=== PATIENT | female | born 1970 | race Caucasian/White ===

== ENCOUNTER 2021-04-06 11:15 | Day surgery (SDC) | payer OTHER ==
[2021-04-04 16:33] VITALS: BMI 33.7
[2021-04-06] MEDS ORDERED: PROPOFOL 20 ML ONE (12:17)
[2021-04-06 13:32] VITALS: TEMP 98.2
[2021-04-06 13:35] VITALS: BP 141/84; PULSE 78
== END 2021-04-06 13:30 | disposition home or self-care (01) ==
LOC: FASU-ENDO 11:15
PROVIDERS: ATTEND Internal Medicine Gastroenterology
PROC: 0DJD8ZZ Inspection of Lower Intestinal Tract, Via Natural or Artificial Opening Endoscopic (ICD-10-PCS; principal; 2021-04-06 12:37)
DX: D64.9 Anemia, unspecified (principal); K64.1 Second degree hemorrhoids
CPT/HCPCS: 84703

== ENCOUNTER 2021-04-27 10:28 | Day surgery (SDC) | payer OTHER ==
[2021-04-21 10:29] VITALS: BMI 33.7
[2021-04-27 12:00] VITALS: PULSE 90; TEMP 97.8
[2021-04-27 12:02] VITALS: BP 114/71
== END 2021-04-27 12:04 | disposition home or self-care (01) ==
LOC: FASU-ENDO 10:28
PROVIDERS: ATTEND Internal Medicine Gastroenterology
PROC: 0DB68ZX Excision of Stomach, Via Natural or Artificial Opening Endoscopic, Diagnostic (ICD-10-PCS; 2021-04-27)
PROC: 0DB48ZX Excision of Esophagogastric Junction, Via Natural or Artificial Opening Endoscopic, Diagnostic (ICD-10-PCS; 2021-04-27)
PROC: 0DB98ZX Excision of Duodenum, Via Natural or Artificial Opening Endoscopic, Diagnostic (ICD-10-PCS; principal; 2021-04-27 11:15)
DX: D64.9 Anemia, unspecified (principal); K29.50 Unspecified chronic gastritis without bleeding; K21.9 Gastro-esophageal reflux disease without esophagitis; K20.90 Esophagitis, unspecified without bleeding
CPT/HCPCS: 84703; 88305-TC; 88342-TC

== ENCOUNTER 2021-08-18 08:03 | Day surgery (SDC) | payer OTHER ==
[2021-08-18] MEDS ORDERED: IRON SUCROSE INJECTION 300 MG in SODIUM CHLORIDE 250 ML IVPB ONE (12:30)
[2021-08-18 16:59] VITALS: PULSE 100; TEMP 98.6
[2021-08-18 17:08] VITALS: BP 124/67
== END 2021-08-18 16:00 | disposition home or self-care (01) ==
LOC: JONCNONCHE 08:03
PROVIDERS: ATTEND Internal Medicine Hematology & Oncology
PROC: 3E033GC Introduction of Other Therapeutic Substance into Peripheral Vein, Percutaneous Approach (ICD-10-PCS; principal; 2021-08-18)
DX: D50.9 Iron deficiency anemia, unspecified (principal)
CPT/HCPCS: 96365; J1756

== ENCOUNTER 2021-08-24 06:59 | Day surgery (SDC) | payer OTHER ==
[2021-08-24] MEDS ORDERED: IRON SUCROSE INJECTION 300 MG in SODIUM CHLORIDE 250 ML IVPB ONE (10:00)
[2021-08-24 14:55] LABS: BASO % 1.2 % (0-2.0); EOS % 1.2 % (0-4.5); HEMATOCRIT 24.2 % (32.4-45.2); HEMOGLOBIN 7.2 GM/dL (10.7-15.3); LYMPH % 24.2 % (8-40); MCHC 29.8 g/dl (32.0-36.0); MEAN CELL VOLUME 60.7 fl (80-96); MEAN PLT VOLUME 8.3 fl (7.5-11.1); MONO % 9.1 % (3.8-10.2); NEUT % 64.3 % (42.8-82.8); PLATELET COUNT 370 10^3/uL (134-434); RBC 3.98 M/mm3 (3.60-5.2); RDW 18.6 % (11.6-15.6); WHITE BLOOD COUNT 6.6 K/mm3 (4.0-10.0)
[2021-08-24 14:58] LABS: MCH 18.1 pg (25.7-33.7)
[2021-08-24 15:28] LABS: ANISOCYTOSIS 3+; MACROCYTOSIS 1+; TEAR DROP CELLS 1+
[2021-08-24 16:21] VITALS: TEMP 97.6
[2021-08-24 16:28] VITALS: BP 129/71; PULSE 83
== END 2021-08-24 16:15 | disposition home or self-care (01) ==
LOC: JONCNONCHE 06:59
PROVIDERS: ATTEND Internal Medicine Hematology & Oncology
PROC: 3E033GC Introduction of Other Therapeutic Substance into Peripheral Vein, Percutaneous Approach (ICD-10-PCS; principal; 2021-08-24)
DX: D50.9 Iron deficiency anemia, unspecified (principal)
CPT/HCPCS: 36415; 85025; 96365; J1756

== ENCOUNTER 2021-08-31 06:41 | Day surgery (SDC) | payer OTHER ==
[2021-08-31] MEDS ORDERED: IRON SUCROSE INJECTION 300 MG in SODIUM CHLORIDE 250 ML IVPB ONE (10:00)
[2021-08-31 14:21] LABS: BASO % 0.8 % (0-2.0); EOS % 2.2 % (0-4.5); HEMATOCRIT 29.1 % (32.4-45.2); HEMOGLOBIN 8.9 GM/dL (10.7-15.3); MCH 19.8 pg (25.7-33.7); MCHC 30.7 g/dl (32.0-36.0); MEAN CELL VOLUME 64.6 fl (80-96); MEAN PLT VOLUME 7.9 fl (7.5-11.1); PLATELET COUNT 437 10^3/uL (134-434); RBC 4.51 M/mm3 (3.60-5.2); RDW 26.8 % (11.6-15.6); WHITE BLOOD COUNT 5.4 K/mm3 (4.0-10.0)
[2021-08-31 14:50] LABS: ANISOCYTOSIS 2+; MACROCYTOSIS 0; OVALOCYTE 2+
[2021-08-31 17:39] VITALS: BP 138/71; PULSE 88; TEMP 98.2
== END 2021-08-31 16:20 | disposition home or self-care (01) ==
LOC: JONCNONCHE 06:41
PROVIDERS: ATTEND Internal Medicine Hematology & Oncology
PROC: 3E033GC Introduction of Other Therapeutic Substance into Peripheral Vein, Percutaneous Approach (ICD-10-PCS; principal; 2021-08-31)
DX: D50.9 Iron deficiency anemia, unspecified (principal)
CPT/HCPCS: 36415; 85025; 96365; J1756

== ENCOUNTER 2021-09-07 07:06 | Day surgery (SDC) | payer OTHER ==
[2021-09-07 14:06] LABS: BASO % 0.8 % (0-2.0); EOS % 2.1 % (0-4.5); HEMATOCRIT 33.3 % (32.4-45.2); HEMOGLOBIN 10.5 GM/dL (10.7-15.3); LYMPH % 36.9 % (8-40); MCH 21.1 pg (25.7-33.7); MCHC 31.5 g/dl (32.0-36.0); MEAN CELL VOLUME 66.8 fl (80-96); MEAN PLT VOLUME 8.4 fl (7.5-11.1); NEUT % 49.2 % (42.8-82.8); PLATELET COUNT 377 10^3/uL (134-434); RBC 4.98 M/mm3 (3.60-5.2); RDW 31.7 % (11.6-15.6); WHITE BLOOD COUNT 6.1 K/mm3 (4.0-10.0)
[2021-09-07] MEDS ORDERED: IRON SUCROSE INJECTION 300 MG in SODIUM CHLORIDE 250 ML IVPB ONE (14:15)
[2021-09-07 14:37] LABS: ANISOCYTOSIS 2+; MACROCYTOSIS 0; OVALOCYTE 1+
[2021-09-07 18:31] VITALS: TEMP 98.3
[2021-09-07 18:37] VITALS: BP 138/75; PULSE 75
== END 2021-09-07 16:20 | disposition home or self-care (01) ==
LOC: JONCNONCHE 07:06
PROVIDERS: ATTEND Internal Medicine Hematology & Oncology
PROC: 3E033GC Introduction of Other Therapeutic Substance into Peripheral Vein, Percutaneous Approach (ICD-10-PCS; principal; 2021-09-07)
DX: D50.9 Iron deficiency anemia, unspecified (principal)
CPT/HCPCS: 36415; 85025; 96365; J1756

== ENCOUNTER 2021-09-14 07:28 | Day surgery (SDC) | payer OTHER ==
[2021-09-14] MEDS ORDERED: IRON SUCROSE INJECTION 300 MG in SODIUM CHLORIDE 250 ML IVPB ONE (10:00)
[2021-09-14 17:55] VITALS: TEMP 98.2
[2021-09-14 17:58] VITALS: BP 132/92; PULSE 87
== END 2021-09-14 15:45 | disposition home or self-care (01) ==
LOC: JONCNONCHE 07:28
PROVIDERS: ATTEND Internal Medicine Hematology & Oncology
PROC: 3E033GC Introduction of Other Therapeutic Substance into Peripheral Vein, Percutaneous Approach (ICD-10-PCS; principal; 2021-09-14)
DX: D50.9 Iron deficiency anemia, unspecified (principal)
CPT/HCPCS: 96365; J1756

== ENCOUNTER 2021-11-23 07:13 | Day surgery (SDC) | payer OTHER ==
[2021-11-23] MEDS ORDERED: IRON SUCROSE INJECTION 300 MG in SODIUM CHLORIDE 250 ML IVPB ONE (14:30)
[2021-11-23 17:21] VITALS: BP 137/79; PULSE 88; TEMP 97.8
== END 2021-11-23 16:45 | disposition home or self-care (01) ==
LOC: JONCNONCHE 07:13
PROVIDERS: ATTEND Internal Medicine Hematology & Oncology
PROC: 3E033GC Introduction of Other Therapeutic Substance into Peripheral Vein, Percutaneous Approach (ICD-10-PCS; principal; 2021-11-23)
DX: D50.9 Iron deficiency anemia, unspecified (principal)
CPT/HCPCS: 96365; J1756

== ENCOUNTER 2021-11-30 06:21 | Day surgery (SDC) | payer OTHER ==
[2021-11-30] MEDS ORDERED: SODIUM CHLORIDE IVPB ONE (10:00)
[2021-11-30] MEDS ORDERED: IRON SUCROSE IVPB ONE (10:00)
[2021-11-30] MEDS ORDERED: IRON SUCROSE INJECTION 300 MG in SODIUM CHLORIDE 250 ML IVPB ONE (15:00)
[2021-11-30 18:03] VITALS: TEMP 98.9
[2021-11-30 18:09] VITALS: BP 124/79; PULSE 70
== END 2021-11-30 16:40 | disposition home or self-care (01) ==
LOC: JONCNONCHE 06:21
PROVIDERS: ATTEND Internal Medicine Hematology & Oncology
PROC: 3E033GC Introduction of Other Therapeutic Substance into Peripheral Vein, Percutaneous Approach (ICD-10-PCS; principal; 2021-11-30)
DX: D50.9 Iron deficiency anemia, unspecified (principal)
CPT/HCPCS: 96365; J1756

== ENCOUNTER 2021-12-07 06:26 | Day surgery (SDC) | payer OTHER ==
[2021-12-07] MEDS ORDERED: IRON SUCROSE INJECTION 300 MG in SODIUM CHLORIDE 250 ML IVPB ONE (10:00)
[2021-12-07 16:35] VITALS: BP 113/73; PULSE 74
[2021-12-07 16:38] VITALS: TEMP 98.7
== END 2021-12-07 16:45 | disposition home or self-care (01) ==
LOC: JONCNONCHE 06:26
PROVIDERS: ATTEND Internal Medicine Hematology & Oncology
PROC: 3E033GC Introduction of Other Therapeutic Substance into Peripheral Vein, Percutaneous Approach (ICD-10-PCS; principal; 2021-12-07)
DX: E61.1 Iron deficiency (principal)
CPT/HCPCS: 96365; J1756

== ENCOUNTER 2021-12-14 06:33 | Day surgery (SDC) | payer OTHER ==
[2021-12-14] MEDS ORDERED: IRON SUCROSE INJECTION 300 MG in SODIUM CHLORIDE 250 ML IVPB ONE (15:30)
[2021-12-14 17:10] VITALS: TEMP 98.6
[2021-12-14 18:03] VITALS: BP 140/78; PULSE 69
== END 2021-12-14 17:30 | disposition home or self-care (01) ==
LOC: JONCNONCHE 06:33
PROVIDERS: ATTEND Internal Medicine Hematology & Oncology
PROC: 3E033GC Introduction of Other Therapeutic Substance into Peripheral Vein, Percutaneous Approach (ICD-10-PCS; principal; 2021-12-14)
DX: D50.9 Iron deficiency anemia, unspecified (principal)
CPT/HCPCS: 96365; J1756

== ENCOUNTER 2025-01-05 06:28 | Emergency (ER) | payer OTHER ==
[2025-01-05 06:38] VITALS: TEMP 98
[2025-01-05 08:04] LABS: ABSOLUTE IMMATURE GRANULOCYTES 0.04 x10^3/uL (0.0-0.031); BASOPHILS # 0.05 x10^3/uL (0.01-0.08); EOSINOPHIL % 1.8 % (0.7-5.8); EOSINOPHILS # 0.15 x10^3/uL (0.04-0.36); MCHC 32.0 g/dl (32.2-35.5); MEAN CELL VOLUME 85.2 fl (79.4-94.8); MEAN PLT VOLUME 9.5 fl (9.4-12.3); MONOCYTE # 0.66 x10^3/uL (0.24-0.86); MONOCYTE % 7.8 % (4.7-12.5); RDW 13.1 % (12.3-16.6)
[2025-01-05 08:05] LABS: URINE APPEARANCE CLOUDY; URINE BILIRUBIN NEGATIVE (NEGATIVE); URINE COLOR YELLOW; URINE GLUCOSE (UA) NEGATIVE (NEGATIVE); URINE KETONE NEGATIVE (NEGATIVE); URINE LEUK ESTERASE NEGATIVE (NEGATIVE); URINE NITRITE NEGATIVE (NEGATIVE); URINE PROTEIN NEGATIVE (NEGATIVE); URINE UROBILINOGEN 0.2 mg/dL (0.2-1.0)
[2025-01-05 08:28] LABS: CO2 29.0 mmol/L (21-32); GLUCOSE,RANDOM 124.0 mg/dL (74-106)
[2025-01-05 08:31] LABS: CREATININE 0.7 mg/dL (0.55-1.3); SGOT/AST 30.0 U/L (15-37); SGPT/ALT 26.0 U/L (13-61)
[2025-01-05 08:33] LABS: TOT PROT 7.6 g/dl (6.4-8.2)
[2025-01-05 08:34] LABS: ALK PHOS 113.0 U/L (45-117)
[2025-01-05 10:40] VITALS: BP 151/81; PULSE 86; RESP 16
== END 2025-01-05 10:53 | disposition home or self-care (01) ==
LOC: JER 06:28
DX: K42.9 Umbilical hernia without obstruction or gangrene (principal); R10.32 Left lower quadrant pain
CPT/HCPCS: 36415; 74177-TC; 76830-TC; 80053; 81003; 84436; 84443; 85025; 87086; 99285-25; Q9967